=== PATIENT | male | born 1965 | race African-American/Black ===

== ENCOUNTER 2016-12-16 22:30 | Emergency (ER) | payer OTHER ==
[~2016-12-16] VITALS: Ht 177.8 cm; Wt 95.3 kg
[2016-12-16 22:36] VITALS: BP 166/100
== END 2016-12-16 23:43 | disposition home or self-care (01) ==
LOC: ER 22:30
DX: R43.2 Parageusia (principal); I10 Essential (primary) hypertension; E11.9 Type 2 diabetes mellitus without complications
CPT/HCPCS: 99281; A4606; Z7610; Z7502